=== PATIENT | female | born 1990 | race Caucasian/White ===

== ENCOUNTER → 2016-05-29 | Day surgery (SDC) | payer OTHER ==
[2016-05-15 11:45] VITALS: Ht 175.3 cm; Wt 60.9 kg
[~2016-05-29] VITALS: Ht 175.3 cm; Wt 60.9 kg
[~2016-05-29] MED LIST: CLR/5 PO; LEVO112T4 PO; LIDOCAINE HCL 2% 2 ML VIAL (20MG/ML) ONE; MIDAZOLAM HCL 1 MG/ML 2ML VIAL ONE; NORE-24 PO; PROPOFOL IV EMULSION 10 MG/ML 20 ML VIAL IV ONE; SELE1TAB5 PO; SODIUM CHLORIDE 0.9% 500ML 500 ML IV ONE; TRIA1SPR4 NAE
--- NOTE | 2016-05-29 12:12 | Endo History and Physical ---
History & Physical Date of Service: May 29, 2016. Chief Complaint: CHRONIC DIARRHEA Referring Physician: DR. PAN History of Present Illness 26 yo CF who presents for colonoscopy secondary to chronic diarrhea. Past Surgical History Hx Cardiac Surgery: No Hx Internal Defibrillator: No Hx Pacemaker: No Hx Abdominal Surgery: No Hx of Implantable Prosthesis: No Hx Post-Op Nausea and Vomiting: No Hx Cancer Surgery: No Hx Thoracic Surgery: No Hx Orthopedic: No Hx Urinary Tract Surgery: No Family History None Social History Smoking Status: Never Smoker Hx Substance Use: No Hx Alcohol Use: No Allergies Coded Allergies: No Known Allergies (Verified , 05/29/16) Current Medications Reported Home Medications Medications Dose Route/Sig Max Daily Dose Days Date Category Clarinex (Desloratadine) 5 Mg Tab 5 Mg PO QPM PRN 05/15/16 Reported Nasacort Allergy 24Hr (Triamcinolone Acetonide (Nasal) 55 Mcg/Act Spr 2 [place] TORRI QPM PRN 05/15/16 Reported Selenium (Selenium-Yeast) 1 Tab Tab 1 Tab PO QPM 05/15/16 Reported Microgestin 1.5MG/30MG (Ethinyl Estradiol/Norethindrone) Tab 1 Tab PO QPM 05/15/16 Reported Levothyroxine Sodium 112 Mcg Tab 1 Tab PO QAM 05/15/16 Reported Vital Signs Weight (Kilograms): 60.91 Height (Feet): 5 Height (Inches): 9 Date Time Temp Pulse Resp B/P Pulse Ox O2 Delivery O2 Flow Rate FiO2 05/29/16 11:18 36.2 73 18 100/62 99 Room Air Physical Exam General Appearance: WD/WN, no apparent distress Respiratory/Chest: Auscultation: breath sounds normal Cardiovascular: Heart Auscultation: RRR Abdomen: Bowel Sounds: normal Inspection & Palpation: soft, non-distended, no tenderness, guarding & rebound Assessment and Plan Assessment: 26 yo CF who presents for colonoscopy secondary to chronic diarrhea. Plan: Proceed with colonoscopy.
--- NOTE | 2016-05-29 12:44 | Discharge Instructions ---
Endoscopy Patient Instructions Date / Procedure(s) Performed May 29, 2016. Colonoscopy Allergy Information Coded Allergies: No Known Allergies (Verified , 05/29/16) Discharge Date / Findings May 29, 2016. Random colon biopsies Stool aspirate collected Internal hemorrhoids Medication Instructions OK to resume all medications today as prescribed Reported Home Medications Medications Dose Route/Sig Max Daily Dose Days Date Category Clarinex (Desloratadine) 5 Mg Tab 5 Mg PO QPM PRN 05/15/16 Reported Nasacort Allergy 24Hr (Triamcinolone Acetonide (Nasal) 55 Mcg/Act Spr 2 [place] TORRI QPM PRN 05/15/16 Reported Selenium (Selenium-Yeast) 1 Tab Tab 1 Tab PO QPM 05/15/16 Reported Microgestin 1.5MG/30MG (Ethinyl Estradiol/Norethindrone) Tab 1 Tab PO QPM 05/15/16 Reported Levothyroxine Sodium 112 Mcg Tab 1 Tab PO QAM 05/15/16 Reported Provider Instructions Activity Restrictions - No exercising or heavy lifting for 24 hours. - Do not drink alcohol the day of the procedure. - Do not drive a car or operate machinery until the day after the procedure. - Do not make any important decisions or sign important papers in 24 hours after the procedure. Following Day: - Return to full activity which may include returning to work/school. Diet Start your diet with liquids and light foods (jello, soup, juice, toast). Then eat your usual diet if not nauseated. Treatment For Common After Affects For mild abdominal pain, bloating, or excessive gas: - Rest - Eat lightly - Lie on right side Follow-Up Information Follow-up with DR. PAN as scheduled Anesthesia Information What You Should Know You have had a procedure that required some medicine to reduce anxiety and discomfort. This treatment is called moderate sedation. After receiving the treatment, you may be sleepy, but you will be able to breathe on your own. The effects of the treatment may last for several hours. Follow these instructions along with Activity/Diet recommendations noted above: * Do NOT do anything where dizziness or clumsiness would be dangerous. * Rest quietly at home today, then you can be up and about tomorrow. * Have a responsible person stay with you the rest of today. * You may have had an I.V. today. If so, you may take the dressing off later today. Recommendations Call your doctor if: * Trouble breathing * Continuous vomiting for more than 24 hours * Temperature above 101 degrees * Severe abdominal pain or bloating * Pain not relieved by pain medicine ordered * There is increased drainage or redness from any incision * A large amount of rectal bleeding greater than 2-3 tablespoons. (If you had a polyp/s removed or have hemorrhoids, a small amount of blood - from the rectum is to be expected.) * You have any unanswered questions or concerns. IN THE EVENT OF A SERIOUS EMERGENCY, GO TO THE NEAREST EMERGENCY ROOM Your discharge instructions were prepared by provider Cuba Everett. Patient Instructions Signature Page Arjun Londono Patient (or Guardian) Signature/Date: I have read and understand the instructions given to me by my caregivers. Caregiver/RN/Doctor Signature/Date: The above-named patient and/or guardian has received patient instructions on this date. + Original Patient Signature Page (only) stays with chart. Please make copy for patient.
--- NOTE | 2016-05-29 13:05 | GI REPORT ---
Procedure Date: 05/29/2016 12:10 PM Procedure: Colonoscopy Indications: Chronic diarrhea Medicines: Monitored Anesthesia Care Complications: No immediate complications. Estimated Blood Loss: Estimated blood loss: none. Procedure: Pre-Anesthesia Assessment: - Prior to the procedure, a History and Physical was performed, and patient medications and allergies were reviewed. The patient's tolerance of previous anesthesia was also reviewed. The risks and benefits of the procedure and the sedation options and risks were discussed with the patient. All questions were answered, and informed consent was obtained. Prior Anticoagulants: The patient has taken no previous anticoagulant or antiplatelet agents. ASA Grade Assessment: II - A patient with mild systemic disease. After reviewing the risks and benefits, the patient was deemed in satisfactory condition to undergo the procedure. After I obtained informed consent, the scope was passed under direct vision. Throughout the procedure, the patient's blood pressure, pulse, and oxygen saturations were monitored continuously. The On-site loaner was introduced through the anus and advanced to the terminal ileum. The colonoscopy was performed without difficulty. The patient tolerated the procedure well. The quality of the bowel preparation was good. The terminal ileum, the appendiceal orifice and the rectum were photographed. Findings: The colon (entire examined portion) appeared normal. Several random biopsies were obtained with cold forceps for histology in the entire colon. Fluid aspiration for cytology was performed. Non-bleeding internal hemorrhoids were found during retroflexion. The hemorrhoids were small. Impression: - The entire examined colon is normal. Fluid aspiration performed. - Non-bleeding internal hemorrhoids. - Several random biopsies were obtained in the entire colon. Recommendation: - Resume previous diet. - Continue present medications. - Repeat colonoscopy for surveillance based on pathology results. - Return to primary care physician as previously scheduled. Cuba Everett DO 05/29/2016 1:03:44 PM This report has been signed electronically. Note Initiated On: 05/29/2016 12:10 PM I attest to the content of the Intraoperative Record and orders documented therein, exceptions below
--- NOTE | 2016-05-29 13:14 | Anesthesiology Progress Note ---
Anesthesia Post Op Note Date & Time May 29, 2016 at 13:13 Vital Signs Pain Intensity: 0 Vital Signs Past 12 Hours Date Time Temp Pulse Resp B/P Pulse Ox O2 Delivery O2 Flow Rate FiO2 05/29/16 12:59 64 20 109/63 99 Room Air 05/29/16 12:38 73 20 100/53 99 Room Air 05/29/16 11:18 36.2 73 18 100/62 99 Room Air Notes Mental Status: alert / awake / arousable, participated in evaluation Pt Amnestic to Procedure: Yes Nausea / Vomiting: adequately controlled Pain: adequately controlled Airway Patency, RR, SpO2: stable & adequate BP & HR: stable & adequate Hydration State: stable & adequate Anesthetic Complications: no major complications apparent
[2016-05-29 13:15] VITALS: BP 118/71; PULSE 60; O2SAT 100
== END | disposition home or self-care (01) ==
LOC: C.GI 10:55
PROVIDERS: ATTEND Internal Medicine
DX: R19.7 Diarrhea, unspecified (principal); K64.8 Other hemorrhoids

== ENCOUNTER → 2016-07-28 | Outpatient (CLI) | payer OTHER ==
[~2016-07-28] MED LIST changes: -LIDOCAINE HCL 2% 2 ML VIAL (20MG/ML) ONE; -MIDAZOLAM HCL 1 MG/ML 2ML VIAL ONE; -PROPOFOL IV EMULSION 10 MG/ML 20 ML VIAL IV ONE; +SINCALIDE INJ 1.27 MCG in SODIUM CHLORIDE 0.9% 100ML 100 ML IV ONE; -SODIUM CHLORIDE 0.9% 500ML 500 ML IV ONE
--- NOTE | 2016-07-28 12:26 | DIAGNOSTIC IMAGING REPORT ---
HEPATOBILIARY EF IMAGING CLINICAL HISTORY: Nausea COMPARISON STUDY: No previous studies for comparison. FINDINGS: The patient was injected with 5.7 mCi of technetium 99m Choletec. Sequential anterior imaging was performed. The gallbladder was first visualized on the 15 minute image. Hepatic excretion appeared unremarkable. There is normal passage of activity into small bowel. At 1 hour, the patient was administered 1.27 mcg of sincalide he was a 30 minute intravenous infusion. The gallbladder ejection fraction was normal at 61%. IMPRESSION: Normal study. No evidence of cystic duct obstruction. Normal gallbladder ejection fraction of 61%. Electronically signed by: Bonifacio Rosales M.D. 07/28/2016 12:25 PM Dictated Date/Time: 07/28/2016 12:18 PM
== END | disposition home or self-care (01) ==
LOC: C.NUCL 09:40
PROVIDERS: ATTEND Registered Nurse
DX: R11.0 Nausea (principal)

== ENCOUNTER 2017-03-08 19:42 | Emergency (ER) | payer OTHER ==
[~2017-03-08] VITALS: Ht 172.7 cm; Wt 65.2 kg
[~2017-03-08 19:42] MED LIST changes: -SINCALIDE INJ 1.27 MCG in SODIUM CHLORIDE 0.9% 100ML 100 ML IV ONE
[2017-03-08 19:54] VITALS: TEMP 36.9; Ht 172.7 cm; Wt 65.2 kg
[2017-03-08 21:48] LABS: HEMATOCRIT 38.5 % (37-47); HEMOGLOBIN 13.2 g/dL (12.0-16.0); MEAN CELL VOLUME 94.4 fL (80-100); MEAN CORPUSCULAR HEMOGLOBIN 32.4 pg (25-34); MEAN CORPUSCULAR HGB CONC 34.3 g/dl (32-36); PLATELET COUNT 231 K/uL (130-400); RED CELL DISTRIBUTION WIDTH CV 12.6 % (11.5-14.5); RED CELL DISTRIBUTION WIDTH SD 43.2 fL (36.4-46.3); WHITE BLOOD COUNT 6.82 K/uL (4.8-10.8)
[2017-03-08 22:05] LABS: ALBUMIN 4.1 gm/dl (3.4-5.0); ALT/SGPT 22 U/L (12-78); BLOOD UREA NITROGEN 10 mg/dl (7-18); CALCIUM 8.8 mg/dl (8.5-10.1); CARBON DIOXIDE 26 mmol/L (21-32); CREATININE 0.93 mg/dl (0.60-1.20); GLUCOSE 74 mg/dl (70-99); POTASSIUM 3.5 mmol/L (3.5-5.1); SODIUM 138 mmol/L (136-145)
[2017-03-08] MEDS ORDERED: MULT-240 PO (22:07)
[2017-03-08] MEDS ORDERED: THEA1CAP PO (22:07)
[2017-03-08] MEDS ORDERED: LEVO125T5 PO (22:07)
[2017-03-08 22:16] LABS: ALKALINE PHOSPHATASE 64 U/L (45-117); AST/SGOT 17 U/L (15-37); CKMB < 0.5 ng/ml (0.5-3.6); TOTAL PROTEIN 7.8 gm/dl (6.4-8.2)
--- NOTE | 2017-03-08 22:28 | DIAGNOSTIC IMAGING REPORT ---
CHEST 2 VIEWS ROUTINE CLINICAL HISTORY: Palpitations. COMPARISON STUDY: No previous studies for comparison. FINDINGS: Lung volumes are normal. No pneumothorax or pleural effusion is present. Cardiac size is normal. Mediastinal contours are normal. There is no evidence for pulmonary edema. The lungs are clear. IMPRESSION: No acute cardiopulmonary findings. Electronically signed by: Braden Veliz M.D. 03/08/2017 10:27 PM Dictated Date/Time: 03/08/2017 10:26 PM
[2017-03-08 22:42] LABS: BASO % 0.3 %; BASO ABS # 0.02 K/uL (0-0.2); EOS % 4.3 %; EOS ABS # 0.29 K/uL (0-0.5); IG# 0.01 K/uL (0.00-0.02); LYMPH % 51.8 %; LYMPH ABS # 3.53 K/uL (1.2-3.4); MONO % 5.1 %; MONO ABS # 0.35 K/uL (0.11-0.59); NEUT % 38.4 %; NEUT ABS # 2.62 K/uL (1.4-6.5)
[2017-03-09 00:31] VITALS: BP 101/53; PULSE 72; O2SAT 99
--- NOTE | 2017-03-09 20:26 | EMERGENCY ROOM VISIT NOTE ---
History First contact with patient: 21:52 Chief Complaint: CARDIAC ASSESSMENT Stated Complaint: FATIGUE, DIZZINESS, HEART FLUTTER, NAUSEA-REFERRED Nursing Triage Summary: Pt complains of dizziness, fatigue, lightheadedness and chest fluttering. It started 2 weeks ago and now its worse. Pt went to [facility] and was sent over for further testing. History of Present Illness The patient is a 26 year old female who presents to the Emergency Room with multiple complaints over the past 2 weeks. The patient has been following with [facility] for shortness of breath, discomfort in her chest, dizziness, lightheadedness, and palpitations. The patient states that her symptoms have worsened over the past one to 2 days, and was referred here by [facility]. She does not report distinct fever or chills. Sometimes her symptoms occur at rest and with exercise. She is usually healthy , essentially only taking Synthroid and control. She does follow with endocrinology. She has not had weight gain or weight loss. No coughing or wheezing. She does feel tired at times. Her appetite and sleep schedule has been normal. She denies chance of . She rates her discomfort a 4/10. Review of Systems More than 10 systems were reviewed and otherwise negative with the exception of history of present illness. Past Medical/Surgical History Hypothyroidism Family History No pertinent family history Social History Smoking Status: Never Smoker Occupation Status: [employer] student Current/Historical Medications Scheduled Ethinyl Estradiol/Norethindr (Microgestin 1.5MG/30MG), 1 TAB PO QPM Levothyroxine Sodium (Levothyroxine Sodium), 125 MCG PO DAILY Multiple Vitamins W/ Minerals (Womens One Daily), 1 TAB PO DAILY Selenium-Yeast (Selenium), 1 TAB PO QPM Theanine (L-Theanine), 100 MG PO DAILY Scheduled PRN Desloratadine (Clarinex), 5 MG PO QPM PRN for Allergy Symptoms Triamcinolone Acetonide (Nasal (Nasacort Allergy 24Hr), 2 SPRAYS TORRI QPM PRN for Allergy Symptoms Physical Exam Vital Signs Date Time Temp Pulse Resp B/P (MAP) Pulse Ox O2 Delivery O2 Flow Rate FiO2 03/09/17 00:31 72 18 101/53 99 03/08/17 22:50 70 18 108/52 99 Room Air 03/08/17 21:35 70 03/08/17 19:54 36.9 91 16 114/75 97 Room Air Physical Exam VITALS: Vitals are noted on the nurse's note and reviewed by myself. Vital signs stable. GENERAL: Well-developed, well-nourished, white female, who is in no acute distress and resting comfortably. Patient is cooperative with the examination. HEAD: Normocephalic atraumatic. EARS: External ear normal. External auditory canals clear, tympanic membranes pearly barnett without erythema or effusion bilaterally. EYES: Pupils equal round and reactive to light and accommodation. Conjunctivae without injection, sclerae without icterus. Extraocular movements intact. NOSE: Patent, turbinates without inflammation or discharge. MOUTH: Mucous membranes moist. Tonsils are not enlarged. Pharynx without erythema, blood, or exudate. Uvula midline. Airway patent. NECK: Supple without nuchal rigidity. No lymphadenopathy. No thyromegaly. Cervical spine is nontender. HEART: Regular rate and rhythm without murmurs gallops or rubs. LUNGS: Clear to auscultation bilaterally without wheezes, rales or rhonchi. No retractions or accessory muscle use. ABDOMEN: Positive normal bowel sounds x 4. Soft, nontender, without masses or organomegaly. No guarding or rebound tenderness. MUSCULOSKELETAL: No muscle atrophy, erythema, or edema noted. Full range of motion without joint tenderness in all extremities. No tenderness to palpation. Normal gait. Strength 5/5 throughout. NEURO: Patient was alert and oriented to person place and time. CN II through XII grossly intact. No focal neurological deficits. Deep tendon reflexes 2+ throughout. SKIN: The skin was without rashes, erythema, edema, or bruising. Capillary refill less than 2 seconds. Medical Decision & Procedures ER Provider Diagnostic Interpretation: CHEST 2 VIEWS ROUTINE CLINICAL HISTORY: Palpitations. COMPARISON STUDY: No previous studies for comparison. FINDINGS: Lung volumes are normal. No pneumothorax or pleural effusion is present. Cardiac size is normal. Mediastinal contours are normal. There is no evidence for pulmonary edema. The lungs are clear. IMPRESSION: No acute cardiopulmonary findings. Laboratory Results 03/08/17 21:30 Red Blood Count 4.08, Mean Corpuscular Volume 94.4, Mean Corpuscular Hemoglobin 32.4, Mean Corpuscular Hemoglobin Concent 34.3, Mean Platelet Volume 10.0, Neutrophils (%) (Auto) 38.4, Lymphocytes (%) (Auto) 51.8, Monocytes (%) (Auto) 5.1, Eosinophils (%) (Auto) 4.3, Basophils (%) (Auto) 0.3, Neutrophils # (Auto) 2.62, Lymphocytes # (Auto) 3.53, Monocytes # (Auto) 0.35, Eosinophils # (Auto) 0.29, Basophils # (Auto) 0.02 03/08/17 21:30 Test 03/08/17 00:00 03/08/17 21:30 03/08/17 21:42 Urine Color YELLOW Urine Appearance CLEAR (CLEAR) Urine pH 7.0 (4.5-7.5) Urine Specific [place] 1.011 (1.000-1.030) Urine Protein NEG (NEG) Urine Glucose (UA) NEG (NEG) Urine Ketones NEG (NEG) Urine Occult Blood NEG (NEG) Urine Nitrite NEG (NEG) Urine Bilirubin NEG (NEG) Urine Urobilinogen NEG (NEG) Urine Leukocyte Esterase TRACE (NEG) Urine WBC (Auto) 1-5 /hpf (0-5) Urine RBC (Auto) 0-4 /hpf (0-4) Urine Hyaline Casts (Auto) 1-5 /lpf (0-5) Urine Epithelial Cells (Auto) 20-30 /lpf (0-5) Urine Bacteria (Auto) NEG (NEG) White Blood Count 6.82 K/uL (4.8-10.8) Red Blood Count 4.08 M/uL (4.2-5.4) Hemoglobin 13.2 g/dL (12.0-16.0) Hematocrit 38.5 % (37-47) Mean Corpuscular Volume 94.4 fL (80-100) Mean Corpuscular Hemoglobin 32.4 pg (25-34) Mean Corpuscular Hemoglobin Concent 34.3 g/dl (32-36) Platelet Count 231 K/uL (130-400) Mean Platelet Volume 10.0 fL (7.4-10.4) Neutrophils (%) (Auto) 38.4 % Lymphocytes (%) (Auto) 51.8 % Monocytes (%) (Auto) 5.1 % Eosinophils (%) (Auto) 4.3 % Basophils (%) (Auto) 0.3 % Neutrophils # (Auto) 2.62 K/uL (1.4-6.5) Lymphocytes # (Auto) 3.53 K/uL (1.2-3.4) Monocytes # (Auto) 0.35 K/uL (0.11-0.59) Eosinophils # (Auto) 0.29 K/uL (0-0.5) Basophils # (Auto) 0.02 K/uL (0-0.2) RDW Standard Deviation 43.2 fL (36.4-46.3) RDW Coefficient of Variation 12.6 % (11.5-14.5) Immature Granulocyte % (Auto) 0.1 % Immature Granulocyte # (Auto) 0.01 K/uL (0.00-0.02) Red Blood Cell Morphology Unremarkable D-Dimer < 190 ug/L FEU (0-500) Anion Gap 6.0 mmol/L (3-11) Est Creatinine Clear Calc Drug Dose 93.3 ml/min Estimated GFR () 99.0 Estimated GFR (Non- 85.4 BUN/Creatinine Ratio 10.6 (10-20) Calcium Level 8.8 mg/dl (8.5-10.1) Total Bilirubin 0.4 mg/dl (0.2-1) Aspartate Amino Transf (AST/SGOT) 17 U/L (15-37) Alanine Aminotransferase (ALT/SGPT) 22 U/L (12-78) Alkaline Phosphatase 64 U/L (45-117) Total Creatine Kinase 84 U/L (26-192) Creatine Kinase MB < 0.5 ng/ml (0.5-3.6) Creatine Kinase MB Ratio (0-3.0) Total Protein 7.8 gm/dl (6.4-8.2) Albumin 4.1 gm/dl (3.4-5.0) Globulin 3.7 gm/dl (2.5-4.0) Albumin/Globulin Ratio 1.1 (0.9-2) Thyroid Stimulating Hormone (TSH) 0.382 uIu/ml (0.300-4.500) Monoscreen NEG (NEG) Bedside Troponin I < 0.030 ng/ml (0-0.045) ECG Change: Normal sinus rhythm @75bpm Incomplete right bundle branch block Rightward axis Borderline ECG No previous ECGs available ED Course Physical exam and history were performed. Nursing notes, EMR, and Medication List were personally reviewed. Patient appears to have several symptoms bring her to the emergency department today. EKG was performed and was normal sinus rhythm at 75 beats for minute without ischemia or ectopy. IV access was established and labs were obtained. Chest x-ray was performed. The patient was placed on a monitor technician. The patient's blood work is as above and was reviewed. She does not have a significantly elevated white blood cell count, anemia, bandemia, or significant electrolyte imbalance. Lipase and transaminases are nondiagnostic. Troponin and d-dimer 1 are both negative. TSH is euthyroid state. She is negative for mononucleosis. Her chest x-ray was reviewed by myself and radiology as showing no acute findings. The patient remained in normal sinus rhythm while on the monitor technician. Overall the patient appears well for discharge home. She does not appear to have an acute cardiopulmonary event causing her symptoms. She has had 2 weeks worth of symptoms, and may ultimately need a Holter or event monitor to better evaluate her symptoms. There may be some underlying stress/anxiety component to her symptoms. I discussed results at length with the patient, and thoroughly encouraged her to return to the ER with any new, worsening, or concerning symptoms. She was pleased with plan of care and voiced understanding. The chart was completed utilizing [employer] Speech Voice Recognition Software. Grammatical errors, random word insertions, pronoun errors, and incomplete sentences are an occasional consequence of this system due to software limitations, ambient noise, and hardware issues. Any formal questions or concerns about the content, text, or information contained within the body of this dictation should be directly addressed to the provider for clarification. . Medical Decision Differential diagnosis includes, but is not limited to: Myocardial infarction, dysrhythmia, pericarditis, pneumothorax, aortic aneurysm/dissection, DVT/PE, anxiety, GERD, PUD, electrolyte imbalance, thyroid disorder, pneumonia, bronchitis, pancreatitis, and others Impression Primary Impression: Shortness of breath Additional Impression: Discomfort in chest Departure Information Dispostion Home / Self-Care Condition GOOD Forms IMPORTANT VISIT INFORMATION Patient Instructions My [facility] Additional Instructions You were seen and evaluated today on an emergency basis only. This is not a substitute for, or an effort to provide, complete comprehensive medical care. It is not possible to recognize and treat all injuries or illnesses in a single emergency department visit. For this reason it is recommended that you followup with [facility] next week for recheck of your condition. You may need referral to cardiology, and [facility] can help facilitate this. Drink plenty of fluids and remain well hydrated. You are welcome to return to the emergency department anytime with new, worsening, or concerning symptoms. Problem Qualifiers
== END 2017-03-09 00:31 | disposition home or self-care (01) ==
LOC: C.EDB 19:45
DX: R06.02 Shortness of breath (principal); R07.89 Other chest pain; R42 Dizziness and giddiness; E03.9 Hypothyroidism, unspecified; Z79.899 Other long term (current) drug therapy